=== PATIENT | male | born 1955 ===

== ENCOUNTER 2017-12-29 11:11 | Emergency (ER) | payer MEDICAID ==
[2017-12-29 11:11] VITALS: BMI 27.4
[2017-12-29 11:24] VITALS: PULSE 75; RESP 16; TEMP 97; O2SAT 98
--- NOTE | 2017-12-29 11:49 | ED PDOC ---
Lower Extremity Pain/Injury Time Seen by Provider: 12/29/17 11:18 Chief Complaint (Nursing): Lower Extremity Problem/Injury Chief Complaint (Provider): Left Knee Injury History Per: Patient History/Exam Limitations: no limitations Onset/Duration Of Symptoms: Mins Current Symptoms Are (Timing): Still Present Additional Complaint(s): Sam is a 62 y/o male who presents to the ED complaining of left knee pain after slipping on snow and falling just prior to arrival. Patient states he had no prior injury to the knee and is now in 8/10 pain localized to the knee. He did not take any medications for the pain prior to arrival. Patient denies head injury, LOC, other extremity pain, abdominal pain, cough, SOB, nausea, vomiting , or recent fever. PMD: None Past Medical History Reviewed: Historical Data, Nursing Documentation, Vital Signs Vital Signs: Last Vital Signs Temp 97 F L 12/29/17 11:19 Pulse 75 12/29/17 11:19 Resp 16 12/29/17 11:19 BP 180/80 H 12/29/17 11:19 Pulse Ox 98 12/29/17 11:19 - Medical History PMH: CHF, Diabetes (type 2), HTN, Hypercholesterolemia Denies: Chronic Kidney Disease - Surgical History Surgical History: Coronary Stent (x 3 at [facility]) - Family History Family History: States: Unknown Family Hx - Social History Current smoker - smoking cessation education provided: No Ex-Smoker (has not smoked in the last 12 months): Yes (30 years ago) Alcohol: Social Drugs: Denies - Home Medications Home Medications: Ambulatory Orders Medication Instructions Recorded Carvedilol [Coreg] 3.125 mg PO BID 10/01/17 Carvedilol [Coreg] 3.125 mg PO BID #14 tab 10/01/17 Furosemide [Lasix] 40 mg PO DAILY 10/01/17 Furosemide [Lasix] 40 mg PO DAILY #14 tab 10/01/17 Losartan Potassium [Cozaar] 100 mg PO DAILY 10/01/17 Losartan Potassium [Cozaar] 100 mg PO DAILY #14 tablet 10/01/17 Spironolactone [Aldactone] 25 mg PO DAILY 10/01/17 Spironolactone [Aldactone] 25 mg PO DAILY #14 tab 10/01/17 metFORMIN [glucOPHAGE] 500 mg PO BID 10/01/17 metFORMIN [glucOPHAGE] 500 mg PO BID #28 tab 10/01/17 Meloxicam [Mobic] 15 mg PO DAILY #14 tab 12/29/17 - Allergies Allergies/Adverse Reactions: Allergies Allergy/AdvReac Type Severity Reaction Status Date / Time No Known Allergies Allergy Verified 12/29/17 11:52 Review of Systems ROS Statement: Except As Marked, All Systems Reviewed And Found Negative Musculoskeletal: Positive for: Leg Pain (left knee) Physical Exam - Reviewed Nursing Documentation Reviewed: Yes Vital Signs Reviewed: Yes - Physical Exam Appears: Positive for: Well, Non-toxic, No Acute Distress Head Exam: Positive for: ATRAUMATIC, NORMOCEPHALIC Skin: Positive for: Normal Color, Warm, Dry Eye Exam: Positive for: EOMI, PERRL Neck: Positive for: Painless ROM, Supple Cardiovascular/Chest: Positive for: Regular Rate, Rhythm. Negative for: Bradycardia, Tachycardia Respiratory: Positive for: Normal Breath Sounds. Negative for: Decreased Breath Sounds, Accessory Muscle Use, Respiratory Distress Pulses-Dorsalis Pedis (L): 2+ Pulses-Dorsalis Pedis (R): 2+ Gastrointestinal/Abdominal: Positive for: Soft. Negative for: Tenderness, Distended, Guarding Extremity: Positive for: Tenderness (diffuse to left knee), Other (small effusion of left knee, (-) anterior and posterior drawer sign, (-) eccymosis, (- ) skin break. Remained of extremity including hip and ankle nontender with FROM. ). Negative for: Normal ROM (decreased ROM of left knee in all directions secondary to pain), Pedal Edema, Calf Tenderness, Deformity Neurologic/Psych: Positive for: Alert, Oriented - ECG O2 Sat by Pulse Oximetry: 98 (RA) Pulse Ox Interpretation: Normal Medical Decision Making Medical Decision Making: Time: 11:44 Initial Impression: Acute left knee pain status post fall, elevated BP reading Initial Plan: --XR Knee Left 3 Views --Toradol -- Patient noted to have elevated BP in ED however denies any other complaints, including but not limited to: headache, chest pain, syncope, dizziness, visual changes. In light of asymptomatic BP reading, no further intervention required in ED. -- repeat BP 1235 XR reviewed, radiology report below: PROCEDURE: Left Knee Radiographs. HISTORY: Pain. COMPARISON: None. FINDINGS: BONES: No fracture Quadriceps insertional enthesophyte some ossification and/or calcification in the distal quadriceps tendon location per lateral view is possible. The expected tendon this tissues here appears thickened -correlation with any prior known remote distal quadriceps tendon pathology and/or remote injury JOINTS: No prominent osteophytic spurring. JOINT EFFUSION: Small effusion possible OTHER FINDINGS: Atherosclerotic vascular calcifications present. . IMPRESSION: No acute fracture. Chronic changes as above Jasmeet wrap and knee immobilizer placed by technical documentation specialist. Placement and application checked by song writer. Limb remains NV intact. Patient provided with crutches. 1250 Repeat BP 160/68. Repeat HR: 75. On re-evaluation, patient reports improvement of symptoms. On exam, patient remains AAOx3, in no acute distress. Lungs clear to auscultation, cardiac RRR, abdomen soft, non-tender, repeat neuro exam shows no focal findings. Diagnostic results d/w the patient in great detail. Diagnosis of acute knee pain /sprain s/p fall d/w the patient. Based on history, exam and diagnostic results, plan will be for outpatient follow up. Patient instructed to follow-up with pmd / referral provided (ortho) / the clinic in 1-2 days without fail. Advised to take medication as prescribed. Return to the emergency room at any time for any new or worsening symptoms. Patient states he fully agrees with and understands discharge instructions. States that he agrees with the plan and disposition. Verbalized and repeated discharge instructions and plan. I have given the patient opportunity to ask any additional questions. Scribe Attestation: Documented by Ernesto Birmingham, acting as a scribe for Shalini Brown PA-C. Provider Scribe Attestation: All medical record entries made by the Scribe were at my direction and personally dictated by me. I have reviewed the chart and agree that the record accurately reflects my personal performance of the history, physical exam, medical decision making, and the department course for this patient. I have also personally directed, reviewed, and agree with the discharge instructions and disposition. Disposition - Clinical Impression Clinical Impression: Knee pain, acute, Fall on snow, Knee sprain - Patient ED Disposition Is Patient to be Admitted: No Counseled Patient/Family Regarding: Studies Performed, Diagnosis, Need For Followup, Rx Given - Disposition Referrals: Morris Parks III, MD [Staff Provider] - Disposition: Routine/Home Disposition Time: 13:13 Condition: STABLE Prescriptions: Meloxicam [Mobic] 15 mg PO DAILY #14 tab Instructions: Knee Immobilizer (DC), Knee Sprain (DC), Knee Pain (DC) Forms: [facility] (Danish) Print Language: SAMI - POA Present On Arrival: None
[2017-12-29 12:48] VITALS: BP 160/68
--- NOTE | 2017-12-29 13:13 | RAD ---
PROCEDURE: Left Knee Radiographs. HISTORY: Pain. COMPARISON: None. FINDINGS: BONES: No fracture Quadriceps insertional enthesophyte some ossification and/or calcification in the distal quadriceps tendon location per lateral view is possible. The expected tendon this tissues here appears thickened -correlation with any prior known remote distal quadriceps tendon pathology and/or remote injury JOINTS: No prominent osteophytic spurring. JOINT EFFUSION: Small effusion possible OTHER FINDINGS: Atherosclerotic vascular calcifications present. . IMPRESSION: No acute fracture. Chronic changes as above
== END 2017-12-29 13:30 | disposition home or self-care (01) ==
LOC: H.ER 11:11
DX: S83.92XA Sprain of unspecified site of left knee, initial encounter (principal); W00.0XXA Fall on same level due to ice and snow, initial encounter; Y92.89 Other specified places as the place of occurrence of the external cause
CPT/HCPCS: 73562; 96372; 99285; J1885